=== PATIENT | female | born 2000 | race Caucasian/White ===

== ENCOUNTER 2024-11-07 06:35 | Outpatient (REF) | payer OTHER, SELFPAY ==
--- NOTE | ~2024-11-07 | US_ITS ---
EXAMINATION: US PELVIS TRANSABDOMINAL AND TRANSVAGINAL HISTORY: PELVIC PAIN, CHECK IUD PLACEMENT COMPARISON: There are no prior studies for comparison. TECHNIQUE: Transabdominal and endovaginal real-time 2D velez-scale ultrasound was performed. FINDINGS: Uterus: The uterus is normal in size, measuring 7.0 x 3.5 x 4 point cm. Myometrium has a normal echotexture. No fibroids are identified. Endometrium: The endometrial stripe is obscured by the presence of an IUD in appropriate position in the endometrial cavity. Right ovary: The right ovary measures 3.4 x 1.6 x 1.9 cm. The right ovary is normal in size and echotexture. Left ovary: The left ovary measures 2.3 x 2.4 x 1.7 cm. The left ovary is normal in size and echotexture. Pelvic fluid: none. US/US pelvic and transvaginal IMPRESSION: The endometrial stripe is not identified due to the presence of an IUD in appropriate position in the endometrial cavity. Otherwise unremarkable pelvic ultrasound. Electronically signed by: Beny Dos Santos MD 11/08/2024 06:59 AM EDT
--- OUTSIDE RECORDS SUMMARY | 2024-11-07 06:38 | XMS_ITS ---
Author Name [facility] Organization Unknown Results Test Name/Text Value Interpretation Date Range Source CHLORIDE 104mmol/L Normal [id number] 98 - 107 [facility] POTASSIUM SERUM 4.4mmol/L Normal [id number] 3.5 - 5.1 C [facility] GLUCOSE 117mg/dL Above high normal [id number] 74 - 106 [facility] SODIUM 138mmol/L Normal [id number] 136 - 145 [facility] CREATININE 0.78mg/dL Normal [id number] 0.55 - 1.02 [facility] BUN 17mg/dL Normal [id number] 9 - 23 [facility] CO2 26mmol/L Normal [id number] 20 - 31 [facility] PATIENT FASTING? UNKNOWN Normal [id number] [facility] GFRE 95 Normal [id number] 60 - [facility] MCH 30PG Normal [id number] 27 - 34 [facility] ABSOLUTE BASO 0K/uL Normal [id number] 0 - 0.2 [facility] LYMPHS 3% Below low normal [id number] 16 - 50 [facility] HCT 38.7% Normal [id number] 36 - 46 [facility] IMMATURE GRANULOCYTES 0% Normal [id number] 0 - 0 .45 [facility] GRANULOCYTES 93% Above high normal [id number] 23 - 7 8 [facility] MPV 10fL Normal [id number] 8 - 12 [facility] ABSOLUTE IMMATURE GRANULOCYTES 0K/uL Normal [id number] 0 - 0.3 [facility] BASOPHILS 0% Normal [id number] 0 - 2 [facility] HGB 13.5g/dL Normal [id number] 12.1 - 15.7 [facility] ABSOLUTE LYMPHS 0.2K/uL Below low normal [id number] 1.5 - 4.9 [facility] PLATELET COUNT 262K/uL Normal [id number] 150 - 480 [facility] NUCLEATED RBC 0% Normal [id number] 0 - 0.2 [facility] MCV 87fL Normal [id number] 83 - 102 [facility] EOSINOPHILS 0% Normal [id number] 0 - 6 [facility] ABSOLUTE MONOS 0.3K/uL Normal [id number] 0.2 - 1.5 [facility] ABSOLUTE GRANULOCYTES 6.4K/uL Normal [id number] 2.2 - 7.3 [facility] MONOCYTES 4% Normal [id number] 0 - 12 [facility] MCHC 34.9g/dL Normal [id number] 31 - 36 [facility] ABSOLUTE EOS 0K/uL Normal [id number] 0 - 0.7 [facility] RDW 11.5% Normal [id number] 11.1 - 13.3 [facility]H RBC 4.45M/uL Normal [id number] 4 - 5.4 [facility] WBC 6.9K/uL Normal [id number] 3.7 - 10.3 [facility] ABSOLUTE NUCLEATED RBC 0K/uL Normal [id number] 0 - 0.012 [facility] Encounters Encounter Type Encounter Reason Primary Diagnosis Location Date Emergency VOMITING VOMITING [facility] 09/21/2024 Care Team Organization Name Specialty Phone Email Start Date End [facility] provided,No Primary Care 09/22/2024 [facility] No provided Primary Care 09/22/2024 [facility] Not directory Primary Care 09/22/2024
== END 2024-11-07 06:36 | disposition home or self-care (01) ==
LOC: HO.UMASIMG 06:35
PROVIDERS: Visit Provider Family Medicine
DX: Z30.431 Encounter for routine checking of intrauterine contraceptive device (principal); R10.2 Pelvic and perineal pain
CPT/HCPCS: 76830; 76856

== ENCOUNTER → 2024-11-07 14:30 | Outpatient (BNV) | payer OTHER, SELFPAY | PROVIDERS: Visit Provider Radiology Diagnostic Radiology | DX: R10.2 Pelvic and perineal pain (principal); Z97.5 Presence of (intrauterine) contraceptive device | CPT/HCPCS: 76830; 76856 ==